=== PATIENT | female | born 1985 | race African-American/Black ===

== ENCOUNTER 2016-08-22 12:31 | Inpatient (IN) | payer OTHER ==
[~2016-08-22] VITALS: Ht 162.6 cm; Wt 85.3 kg
[~2016-08-22 12:31] MED LIST: PREN1CAP17
--- NOTE | 2016-08-22 13:00 | HHI.HP ---
History & Physical H&P Chief Complaint Non-reactive NST Travel History International Travel<30 Days: No Contact w/Intl Traveler<30Days: No Known Affected Area: No History of Present Illness HPI 31 y/o , presenting at 40/0 weeks gestation for a non-reactive stress test (NST) at the out patient office. She has been feeling well besides a persistent dry cough. The cough has been present for the past 3 months. Approximately 1 month ago she was treated with azithromycin x 5 days. She still endorses ++ FM, and denies vaginal bleeding, discharge. She has been having contractions off and on for the past several days. She is GBS negative. Two of her previous pregnancies were complicated by gestational diabetes, and preeclampsia. He BP has been slightly elevated in the office to 142 systolic. Total protein in 24 hour urine was 235.2 mg on . Allergic to ASA and has not been taking. She does have iron deficiency anemia with baseline hg of 9.5. History (Limited) History Past Medical History Narrative Medical Bronchopneumonia in 2016 Anemia Obstetric History Obstetric History Previous vaginal delivery x 3 36, 36, and 38 weeks. Past Surgical History Surgical History: No Previous Surgery Family History Family History: Negative Social History Alcohol Use: No Tobacco Use: No Substance Abuse: No Allergies-Medications Allergies-Medications (Allergen,Severity, Reaction): Coded Allergies: Aspirin (Verified Allergy, Severe, Anaphylaxis, 08/22/16) Home Meds Reported Medications W/O A W/ Fe Asparto G (Prenate Pixie 10-0.6-0.4-200 mg)1 Cap Cap 06/26/16 Discontinued Scripts Promethazine (Phenergan)25 Mg Tab25 Mg PO Q6H PRN (Nausea/Vomiting) #30 TAB Ref 0 Prov:Stefano Cali II, MD 08/12/16 ROS Review of Systems As per HPI. Physical Exam Physical Exam Narrative GENERAL: Well-nourished, well-developed patient. SKIN: Warm and dry. HEAD: Normocephalic and atraumatic. EYES: No scleral icterus. No injection or drainage. ENT: No nasal drainage noted. Mucous membranes pink. Airway patent. NECK: Supple, trachea midline. No JVD. CARDIOVASCULAR: Regular rate and rhythm without murmurs, gallops, or rubs. RESPIRATORY: Breath sounds equal bilaterally. No accessory muscle use. BREASTS: Bilateral exam showed no masses , no retractions, no nipple discharge. ABDOMEN/GI: Abdomen soft, non-tender, bowel sounds present, no rebound, no guarding Gravid to 40 weeks GENITOURINARY: External Genitalia: intact and normal in appearance Cervix: posterior Dilatation: 2 cm Effacement: 20 % Station: -2 Presentation: Vertex Membranes: Intact Uterine Contractions: q 6 minutes FHT's: Category: 1 Baseline: 145 Reactive: y Variability: mod Decels: none EXTREMITIES: No cyanosis or edema. BACK: Nontender without obvious deformity. NEUROLOGICAL: Awake and alert. Motor and sensory grossly within normal limits. Data Data Data Vital Signs Reviewed: Yes MDM MDM Medical Record Reviewed: Yes Plan 31 y/o presenting at 40/0 weeks gestation for non-reactive NST as an outpatient. IUP: Will induce labor for Non-reactive NST Cervix 2 cm, 20%, -2 station Cat 1 tracing Start pitocin 1-1-30 AROM once having consistent contractions GBS negative Elevated BP 142 as outpatient, normal 24 hour urine, continue to monitor. Anemia (Fe deficiency) - baseline Hgb 9.5. dw Sae Reza MD R2 Aug 22, 2016 13:00
[2016-08-22] MEDS ORDERED: LACTATED RINGER'S 1000 ML INJ 1,000 ML IV PRN (13:19)
[2016-08-22] MEDS ORDERED: CITRIC ACID-SODIUM CITRATE LIQ 30 ML UDC PO SCH (13:30)
[2016-08-22] MEDS ORDERED: OXYTOCIN 30 UNITS-500ML PREMIX 500 ML IV SCH (13:30)
[2016-08-22] MEDS ORDERED: MINERAL OIL 10 ML VIAL TOPICAL PRN (13:30)
[2016-08-22] MEDS ORDERED: LIDOCAINE HCL 1% 50 ML VIAL INFIL PRN (13:30)
[2016-08-22] MEDS ORDERED: SODIUM CHLORID 0.9% 500 ML INJ 500 ML IV PRN (13:30)
[2016-08-22] MEDS ORDERED: OXYTOCIN 30 UNITS-500ML PREMIX 500 ML IV ONE (13:30)
[2016-08-22] MEDS ORDERED: LIDOCAINE HCL 1% 50 ML VIAL I-DERMAL PRN (13:30)
[2016-08-22] MEDS ORDERED: SODIUM CHLOR 0.9% 1000 ML INJ 1,000 ML IV PRN (14:00)
[2016-08-22 14:19] LABS: BLOOD, URINE NEG (NEG); GLUCOSE,URINE NEG (NEG); KETONE, URINE 80 mg/dL (NEG); MUCUS URINE FEW /lpf (OCC); NITRITE,URINE NEG (NEG); SQUAMOUS EPITHELIAL CELL URINE 2 /hpf (0-5); URINE COLOR YELLOW (YELLW/STRAW)
[2016-08-22 14:20] LABS: BASOPHIL % 0.3 % (0.0-2.0); COMMENT (UR) CULT NOT INDICATED; CULTURE IF INDICATED CULT NOT INDICATED; EOSINOPHIL % 0.5 % (0.0-4.0); HEMATOCRIT 30.5 % (35.0-46.0); LYMPH % 25.6 % (9.0-44.0); LYMPHOCYTE # 1.5 TH/MM3 (1.0-4.8); MEAN CORPUSCULAR HEMOGLOBIN 24.1 PG (27.0-34.0); MEAN CORPUSCULAR HGB CONC 31.6 % (32.0-36.0); MONO % 7.1 % (0.0-8.0); NEUT % 66.5 % (16.0-70.0); PLATELET COUNT 298 TH/MM3 (150-450); RED BLOOD COUNT 4.01 MIL/MM3 (4.00-5.30); RED CELL DISTRIBUTION WIDTH 15.5 % (11.6-17.2)
[2016-08-22 14:22] LABS: HEMO FLAGS AUTO DIFF
--- NOTE | 2016-08-22 14:24 | PD ---
History of Present Illness Date Seen: Aug 22, 2016 History of Present Illness Pt sent over from [facility] for induction due to NR NST , seen with FM residents and agree with plan to deliver Stefano Cali II, MD Aug 22, 2016 14:24
[2016-08-22 14:50] LABS: OVALOCYTES 1+ (NORMAL); PLATELET ESTIMATE SMEAR NORMAL (NORMAL); PLATELET MORPHOLOGY NORMAL (NORMAL); SCAN/DIFF AUTO DIFF CONFIRMED
[2016-08-22] MEDS: LACTATED RINGER'S 1000 ML INJ 1,000 ML IV SCH ×2 (15:45→21:19)
[2016-08-22] MEDS ORDERED: fentaNYL 2MCG-BUPIV 0.125% INJ 100 ML ONE (19:40)
--- NOTE | 2016-08-22 19:59 | PD.LABORPN ---
Subjective Subjective Patient seen and examined by OB team. No acute events with vital signs stable. Oxytocin currently at 4 mU/m with category 1 tracing. Patient currently requesting epidural, otherwise no complaints. Objective Objective Pelvic Exam: Cervix: Posterior Dilatation: 4 cm Effacement: 2% Station: -3 Presentation: Vertex Membranes: AROM Uterine Contractions: Every 3-4m FHT's: Category: 1 Baseline: 145 Reactive: Positive Variability: Moderate Decels: None Assessment/Plan Assessment and Plan Ms. Macias is a 31 y/o , presenting at 40/0 weeks gestation currently in labor 1. IUP at 40/0 in labor -Continue routine labor care -VSS -Oxytocin at 4 mU/min, category 1 tracing, reassuring -Patient requesting epidural, orders placed DW: Isidro Alvarez MD R1 Aug 22, 2016 19:59
[2016-08-22] MEDS ORDERED: OXYTOCIN 10 UNIT/ML AMP ONE (23:28)
[2016-08-22] MEDS ORDERED: ACETAMINOPHEN 1000 MG/100 ML VIAL IV ONE (23:29)
[2016-08-22] MEDS ORDERED: ceFAZolin INJ 1,000 MG VIAL ONE (23:29)
[2016-08-22] MEDS ORDERED: DO NOT ADMINISTER ANTICOAGULANTS XX PRN (23:30)
[2016-08-22] MEDS ORDERED: ePHEDrine/NS 50 MG/5 ML SYR IV PRN (23:30)
[2016-08-22] MEDS ORDERED: fentaNYL 2MCG-BUPIV 0.125% INJ 100 ML EPIDURAL SCH (23:30)
[2016-08-22] MEDS ORDERED: NO SYSTEM NARCOTICS XX PRN (23:30)
[2016-08-22 23:54] LABS: BLOOD GAS BASE EXCESS -5.9 mmol/L (-2-2); BLOOD GAS O2 HGB SATURATION 21 % (90-100); CORD BLOOD GAS HCO3 20 mmol/L (21-29); CORD BLOOD GAS PCO2 42 mmHG (34-78); CORD BLOOD GAS PH 7.29 (7.14-7.42); CORD BLOOD GAS PO2 16 mmHG (3.0-40.0); DRAW SITE CORD BLOOD; STAT YES
[2016-08-23] MEDS ORDERED: ONDANSETRON HCL 4 MG/2 ML VIAL ONE (00:26)
[2016-08-23] MEDS ORDERED: MORPHINE SULFATE PF 5 MG/10 ML VIAL ONE (00:26)
[2016-08-23] MEDS ORDERED: ZOLPIDEM TARTRATE 5 MG TAB PO PRN (00:30)
[2016-08-23] MEDS ORDERED: SIMETHICONE 80 MG CHEWABLE TAB PO PRN (00:30)
[2016-08-23] MEDS ORDERED: OXYTOCIN 30 UNITS-500ML PREMIX 500 ML IV ONE (00:30)
[2016-08-23] MEDS ORDERED: ACETAMINOPHEN 325 MG TAB PO PRN (00:30)
[2016-08-23] MEDS ORDERED: ONDANSETRON HCL 4 MG/2 ML VIAL IV PUSH PRN (00:30)
[2016-08-23] MEDS ORDERED: KETOROLAC TROMETHAMINE 60 MG/2 ML (IM) VIAL IM PRN (00:30)
[2016-08-23] MEDS ORDERED: SODIUM CHLORIDE 0.9% FLUSH 5 ML FLUSH IV PRN (00:30)
[2016-08-23] MEDS ORDERED: IBUPROFEN 600 MG TAB PO PRN (00:30)
--- NOTE | 2016-08-23 00:42 | RADRPT ---
EXAM DATE/TIME: 08/23/2016 00:14 [facility] COMPARISON: No previous studies available for comparison. INDICATIONS : Instrument count, unknown foreign body MEDICAL HISTORY : None. Post SURGICAL HISTORY : None. ENCOUNTER: Initial ACUITY: 1 day PAIN SCORE: Non-responsive. LOCATION: Bilateral abdomen FINDINGS: Examination of the abdomen demonstrates a normal bowel gas pattern. No free air is identified. No o rganomegaly is evident. Osseous structures are intact. A thin linear radiopaque density overlies the midline of the upper abdomen. I cannot exclude a lap sponge. No radiopaque metallic foreign bodies. CONCLUSION: Linear density overlying the midabdomen. I cannot exclude a lap sponge. Parvez Garcia Jr., MD on August 23, 2016 at 0:40 Board Certified Radiologist. This report was verified electronically.
[2016-08-23] MEDS: LACTATED RINGER'S 1000 ML INJ 1,000 ML IV SCH ×2 (01:27→01:28)
--- NOTE | 2016-08-23 02:08 | RADRPT ---
EXAM DATE/TIME: 08/23/2016 01:52 [facility] COMPARISON: No previous studies available for comparison. INDICATIONS : Evaluate for foriegn body. S/P . ORAL CONTRAST: No oral contrast ingested. RADIATION DOSE: 10.11 CTDIvol (mGy) MEDICAL HISTORY : None SURGICAL HISTORY : section. ENCOUNTER: Initial ACUITY: 1 day PAIN SCALE: 5/10 LOCATION: abdomen TECHNIQUE: Volumetric scanning of the abdomen and pelvis was performed. Using automated exposure control and ad justment of the mA and/or kV according to patient size, radiation dose was kept as low as reasonably achievable to obtain optimal diagnostic quality images. FINDINGS: No radiopaque foreign body observed to suggest a retained instrument or lap sponge. Subcutaneous air overlies anterior abdominal wall consistent with the recent surgery. The uterus is enlarged consisten t with recent section. Small amount of free fluid is seen within the pelvis. A small amount of air is seen within the endometrial canal. Mild bilateral hydronephrosis. The remaining visceral st ructures are unremarkable on this unenhanced study. Note is made of a tear involving the central virgie l of the lumbar spine. This presumably relates to prior epidural injection. CONCLUSION: 1. No foreign body. 2. Air within the central canal of the lumbar spine presumably from recent epidural injection. 3. Recent section with postsurgical changes as detailed above. 4. Mild hydronephrosis bilaterally. 5. Small volume free fluid within the pelvis. Parvez Garcia Jr., MD on August 23, 2016 at 2:04 Board Certified Radiologist. This report was verified electronically.
[2016-08-23] MEDS ORDERED: EPIDURAL-DIPHENHYDRAMINE HCL 50 MG/ML VIAL IV PUSH PRN (02:45)
[2016-08-23] MEDS ORDERED: EPIDURAL-DO NOT ADMINISTER ANTICOAGULANTS XX PRN (02:45)
[2016-08-23] MEDS ORDERED: EPIDURAL-DIPHENHYDRAMINE HCL 50 MG CAP PO PRN (02:45)
[2016-08-23] MEDS ORDERED: EPIDURAL-NO SYSTEMIC NARCOTICS XX PRN (02:45)
[2016-08-23] MEDS ORDERED: EPIDURAL-NALOXONE HCL 0.4 MG/ML AMP IV PRN (02:45)
--- NOTE | 2016-08-23 05:18 | MP ---
cc: FAB CALI MD DATE OF SURGERY 08/23/2016 PREOPERATIVE DIAGNOSIS Non-reassuring heart rate tracing in the second stage. PREOPERATIVE DIAGNOSIS Non-reassuring heart rate tracing in the second stage. PROCEDURE PERFORMED Primary low transverse section. SURGEON Fab Cali MD [employer] Surgical techs. ANESTHESIA Epidural. PREOP NOTE The patient is a 31-year-old black female, G5, P3, at 40 weeks who was induced for nonreactive NST. She obtained cervical dilation of 10 cm and pushed but the baby was having very large variable decelerations and the variability had gone to minimal to absent. The head was at 0 station and was not moving fast enough for it to tolerate the type of heart rate tracing we were seeing and I felt that section was needed in this case. PROCEDURE The patient was taken to the operating room and placed in the supine position on the operating room table. Adequate epidural anesthesia was administered. She was prepped and draped for abdominal surgery. A Pfannenstiel incision was made in the lower abdomen, carried to the fascia, sharply the fascia was dissected off the rectus muscle and the rectus split in the midline. The peritoneal cavity was entered sharply. A bladder blade placed in the lower edge of the incision. The visceral peritoneum was reflected off the lower uterine segment and placed under bladder blade. A transverse hysterotomy was made and extended bluntly bilaterally and a female infant was delivered, weight 8 pounds, 8 ounces, Apgars of 8 and 9. There were no complications at delivery. Cord blood obtained. The cord pH was 7.29 and cord blood obtained. The placenta was manually extracted. The hysterotomy was closed with a running layer of 0 chromic followed by imbricating suture of same. Hemostasis was achieved. The bladder was reapproximated with 2-0 Vicryl running Vicryl. The uterus was elevated. She had a tubal performed at that time. She had tubal papers signed. The left tube was elevated with a Sulema clamp, a hemostat passed through the mesosalpinx and two sutures of 2-0 Vicryl pulled through the mesosalpinx and then the tube was tied fore and aft and the intervening segment of the tube was cut and removed and sent off to pathology. The same was done on the opposite side without difficulty with removal of the right tubal segment as well. They were both sent off. The uterus was elevated and blood suctioned from the cul-de-sac and gutters and the uterus was replaced in the peritoneal cavity. The parietal peritoneum was then closed in a running layer of 2-0 Vicryl. The rectus muscle was reapproximated with stick ties. The fascia was closed in a running layer of 0 Vicryl and then the skin closed with a 3-0 Monocryl subcuticular stitch. Pressure dressing was applied. Estimated blood loss was 500 cc. There were no complications. There was no count as this was an emergent surgery, so she had an abdominal x-ray shot. It was free and clear of any sponge and needle. The patient was taken to Recovery in stable condition. MD CARLO Moreno/DEVENDRA /12:27 AM /5:04 AM
--- NOTE | 2016-08-23 08:52 | HHI.OB ---
Subjective Post Operative Day: 1 Remarks 31 y/o POD #1 after emergent for non-reassuring hr. Patient just had mckenzie removed. Has not voided yet. Pain is a 4/10 localized to lower abdomen. Tolerating diet. Ambulating without difficulty. Still with vaginal bleeding but getting less and does not report any clots. No pain in her chest or sob. Objective Vitals/I&O Vital Signs Date Time Temp Pulse Resp B/P Pulse Ox O2 Delivery O2 Flow Rate FiO2 08/22/16 19:40 18 Result Diagram: 08/22/16 1327 Objective Remarks GENERAL: Well-nourished, well-developed patient. CARDIOVASCULAR: Regular rate and rhythm without murmurs, gallops, or rubs. RESPIRATORY: Breath sounds equal bilaterally. No accessory muscle use. ABDOMEN/GI: Abdomen soft, non-tender, bowel sounds present. Incision: Clean, dry and intact. Fundus: Firm, non-tender at umbilicus. GENITOURINARY: Light to moderate bleeding. EXTREMITIES: No cyanosis or edema, non-tender, without signs of DVT. Medications and IVs Current Medications Medications (Trade) Dose Ordered Sig/Susan Route Start Time Stop Time Status Last Admin (Lr 1000 ml Inj) 1,000 ml @ 100 mls/hr Q10H IV 08/23/16 05:21 08/24/16 01:20 08/23/16 01:28 (NS Flush) 2 ml BID IV 08/23/16 09:00 (NS Flush) 2 ml UNSCH PRN IV 08/23/16 00:30 (Mylicon Chew) 80 mg QID PRN PO 08/23/16 00:30 (Tylenol) 650 mg Q6H PRN PO 08/23/16 00:30 Oxycodone/ Acetaminophen 1 tab 1 tab Q4H PRN PO 08/23/16 00:30 (Ancef Inj/NS Inj) 100 ml @ 200 mls/hr Q8H IV 08/23/16 08:00 08/23/16 16:29 (Ambien) 5 mg HS PRN PO 08/23/16 00:30 (M-M-R Ii Inj) 0.5 ml ONCE ONCE SQ 08/24/16 16:00 08/24/16 16:01 (Boostrix Inj) 0.5 ml ONCE ONCE IM 08/24/16 16:00 08/24/16 16:01 (Zofran Inj) 4 mg Q6H PRN IV PUSH 08/23/16 00:30 (Ofirmev Inj) 1,000 mg Q8H IV 08/23/16 00:00 08/23/16 16:01 Miscellaneous Information NO SYSTEMIC NARCOTICS TO BE GIVEN FO... UNSCH PRN XX 08/23/16 02:45 08/24/16 02:44 (Narcan Inj) 0.4 mg UNSCH PRN IV 08/23/16 02:45 08/24/16 02:44 (Benadryl Inj) 25 mg Q6H PRN IV PUSH 08/23/16 02:45 08/24/16 02:44 08/23/16 02:54 (Benadryl) 50 mg Q6H PRN PO 08/23/16 02:45 08/24/16 02:44 Miscellaneous Information ALL NURSING DEPARTMENTS UNSCH PRN XX 08/23/16 02:45 08/24/16 02:44 Assessment/Plan Problem List: (1) delivery delivered Assessment and Plan 31 y/o POD#0-1, s/p C/S for distress. POD# 1 AFVSS Continue routine post care. Motrin and Percocet for pain Encourage breast feeding, requesting insolvency consultant Contraception: still considering options Dispo: Likely d/c home in 2-3 days. F/u with Mia Matos in 1 week post operatively. bola Cali. Sae Florian MD R2 Aug 23, 2016 08:52
[2016-08-23] MEDS: SODIUM CHLORIDE 0.9% FLUSH 5 ML FLUSH IV SCH ×2 (09:18→21:00)
--- NOTE | 2016-08-23 09:45 | HHI.OB ---
Subjective Post Operative Day: 1 Remarks Doing well , no c/o . 9 hrs postop exam- 3 + distention + bowel sounds , incision looks good Plan progressive post op care Objective Vitals/I&O Vital Signs Date Time Temp Pulse Resp B/P Pulse Ox O2 Delivery O2 Flow Rate FiO2 08/22/16 19:40 18 Result Diagram: 08/22/16 5891 Objective Remarks GENERAL: Well-nourished, well-developed patient. CARDIOVASCULAR: Regular rate and rhythm without murmurs, gallops, or rubs. RESPIRATORY: Breath sounds equal bilaterally. No accessory muscle use. ABDOMEN/GI: Abdomen soft, non-tender, bowel sounds present. Incision: Clean, dry and intact. Fundus: Firm, non-tender at umbilicus. GENITOURINARY: Light to moderate bleeding. EXTREMITIES: No cyanosis or edema, non-tender, without signs of DVT. Medications and IVs Current Medications Medications (Trade) Dose Ordered Sig/Susan Route Start Time Stop Time Status Last Admin (Lr 1000 ml Inj) 1,000 ml @ 100 mls/hr Q10H IV 08/23/16 05:21 08/24/16 01:20 08/23/16 01:28 (NS Flush) 2 ml BID IV 08/23/16 09:00 08/23/16 09:18 (NS Flush) 2 ml UNSCH PRN IV 08/23/16 00:30 (Mylicon Chew) 80 mg QID PRN PO 08/23/16 00:30 (Tylenol) 650 mg Q6H PRN PO 08/23/16 00:30 Oxycodone/ Acetaminophen 1 tab 1 tab Q4H PRN PO 08/23/16 00:30 (Ancef Inj/NS Inj) 100 ml @ 200 mls/hr Q8H IV 08/23/16 08:00 08/23/16 16:29 08/23/16 09:19 (Ambien) 5 mg HS PRN PO 08/23/16 00:30 (M-M-R Ii Inj) 0.5 ml ONCE ONCE SQ 08/24/16 16:00 08/24/16 16:01 (Boostrix Inj) 0.5 ml ONCE ONCE IM 08/24/16 16:00 08/24/16 16:01 (Zofran Inj) 4 mg Q6H PRN IV PUSH 08/23/16 00:30 (Ofirmev Inj) 1,000 mg Q8H IV 08/23/16 00:00 08/23/16 16:01 Miscellaneous Information NO SYSTEMIC NARCOTICS TO BE GIVEN FO... UNSCH PRN XX 08/23/16 02:45 08/24/16 02:44 (Narcan Inj) 0.4 mg UNSCH PRN IV 08/23/16 02:45 08/24/16 02:44 (Benadryl Inj) 25 mg Q6H PRN IV PUSH 08/23/16 02:45 08/24/16 02:44 08/23/16 02:54 (Benadryl) 50 mg Q6H PRN PO 08/23/16 02:45 08/24/16 02:44 Miscellaneous Information ALL NURSING DEPARTMENTS UNSCH PRN XX 08/23/16 02:45 08/24/16 02:44 Assessment/Plan Problem List: (1) delivery delivered Assessment and Plan 31 y/o POD#0-1, s/p C/S for distress. POD# 1 AFVSS Continue routine post care. Motrin and Percocet for pain Encourage breast feeding, requesting human capital consultant Contraception: still considering options Dispo: Likely d/c home in 2-3 days. F/u with Mia Matos in 1 week post operatively. bola Cali. Stefano Cali II, MD Aug 23, 2016 09:45
[2016-08-23] MEDS ORDERED: OXYTOCIN 30 UNITS-500ML PREMIX 500 ML IV PRN (10:30)
[2016-08-23] MEDS: ACETAMINOPHEN 1000 MG/100 ML VIAL IV SCH ×3 (14:20→16:00)
[2016-08-23] MEDS: IBUPROFEN 600 MG TAB PO PRN ×2 (14:21→22:41)
[2016-08-23] MEDS ORDERED: ACETAMINOPHEN 1000 MG/100 ML VIAL IV ONE (22:20)
[2016-08-23] MEDS: oxyCODONE/ACETAMINOPHEN 5 MG/325 MG TAB PO PRN (22:41)
[2016-08-24] VITALS (9 sets, daily range): BP systolic 102–127; BP diastolic 61–85; PULSE 79–90; RESP 16–18; TEMP 97.7–99; O2SAT 98
[2016-08-24] MEDS: IBUPROFEN 600 MG TAB PO PRN ×3 (06:15→18:18)
[2016-08-24 07:05] LABS: AUTOMATED NEUTROPHIL # 8.1 TH/MM3 (1.8-7.7); BASOPHIL % 0.2 % (0.0-2.0); EOSINOPHIL # 0.1 TH/MM3 (0-0.4); EOSINOPHIL % 1.1 % (0.0-4.0); LYMPH % 17.5 % (9.0-44.0); MEAN CELL VOLUME 76.7 FL (80.0-100.0); MEAN CORPUSCULAR HEMOGLOBIN 24.3 PG (27.0-34.0); MEAN CORPUSCULAR HGB CONC 31.8 % (32.0-36.0); MONO % 11.3 % (0.0-8.0); NEUT % 69.9 % (16.0-70.0); PLATELET COUNT 197 TH/MM3 (150-450); RED BLOOD COUNT 2.64 MIL/MM3 (4.00-5.30); RED CELL DISTRIBUTION WIDTH 15.9 % (11.6-17.2); WHITE BLOOD COUNT 11.6 TH/MM3 (4.0-11.0)
[2016-08-24 07:16] LABS: HEMATOCRIT 20.3 % (35.0-46.0); HEMO FLAGS AUTO DIFF
[2016-08-24 08:18] LABS: SCAN/DIFF AUTO DIFF CONFIRMED
[2016-08-24 08:19] LABS: OVALOCYTES 1+ (NORMAL)
--- NOTE | 2016-08-24 09:14 | HHI.OB ---
Subjective Post Operative Day: 2 Remarks Patient has been having increasing lower abdominal pain. The pain radiates to her back. It's about a 5 out of 10. She took one Percocet overnight, and this helps, however she does not want to be "sleepy." She is eating normally, denies palpitations, or feeling lightheaded. Her vaginal bleeding is spice blender than her period, and she denies any clots. Post operative day #2 hemoglobin returned at 6.4, preoperative hemoglobin was 9.7. She is currently asymptomatic. Objective Vitals/I&O Vital Signs Date Time Temp Pulse Resp B/P Pulse Ox O2 Delivery O2 Flow Rate FiO2 08/23/16 14:40 16 Result Diagram: 08/24/16 0525 Objective Remarks GENERAL: Well-nourished, well-developed patient. CARDIOVASCULAR: Regular rate and rhythm without murmurs, gallops, or rubs. RESPIRATORY: Breath sounds equal bilaterally. No accessory muscle use. ABDOMEN/GI: Abdomen soft, non-tender, bowel sounds present. Incision: Clean, dry and intact. Fundus: Firm, non-tender at umbilicus. GENITOURINARY: Light to moderate bleeding. EXTREMITIES: No cyanosis or edema, non-tender, without signs of DVT. Medications and IVs Current Medications Medications (Trade) Dose Ordered Sig/Susan Route Start Time Stop Time Status Last Admin (NS Flush) 2 ml BID IV 08/23/16 09:00 08/23/16 09:18 (NS Flush) 2 ml UNSCH PRN IV 08/23/16 00:30 (Mylicon Chew) 80 mg QID PRN PO 08/23/16 00:30 (Tylenol) 650 mg Q6H PRN PO 08/23/16 00:30 08/24/16 06:14 (Percocet 5-325 Mg) 1 tab Q4H PRN PO 08/23/16 00:30 08/23/16 22:41 (Ambien) 5 mg HS PRN PO 08/23/16 00:30 (M-M-R Ii Inj) 0.5 ml ONCE ONCE SQ 08/24/16 16:00 08/24/16 16:01 (Boostrix Inj) 0.5 ml ONCE ONCE IM 08/24/16 16:00 08/24/16 16:01 (Zofran Inj) 4 mg Q6H PRN IV PUSH 08/23/16 00:30 (Motrin) 600 mg Q6H PRN PO 08/23/16 13:00 08/24/16 06:15 Assessment/Plan Problem List: (1) delivery delivered Assessment and Plan 31 y/o POD#2, s/p C/S for distress. POD# 2 AFVSS Post operative anemia to 6.4 g/dL, recheck CBC in 24 hours, unless the patient becomes symptomatic. She is not tachycardic, or having any symptoms of anemia. Continue routine post care. Motrin and Percocet for pain Encourage breast feeding, requesting labor relations consultant Contraception: still considering options Dispo: Likely d/c home in 1-2 days. F/u with Mia Matos in 1 week post operatively. Sae Burgos Dr., MD R2 Aug 24, 2016 09:14
[2016-08-24] MEDS ORDERED: SODIUM CHLOR 0.9% 250 ML INJ 250 ML IV ONE (10:15)
[2016-08-24] MEDS: DOCUSATE SODIUM 50 MG/SENNA 8.6 MG TAB PO PRN (12:08)
[2016-08-24] MEDS: oxyCODONE/ACETAMINOPHEN 5 MG/325 MG TAB PO PRN ×3 (12:10→20:39)
[2016-08-24] MEDS ORDERED: DIPHTH/TETANUS/ACEL PERTUSSIS (BOOSTER) 0.5 ML VIAL/PFS IM ONE (16:00)
[2016-08-24] MEDS ORDERED: MEASLES, MUMPS, RUBELLA VACCINE 0.5 ML VIAL SQ ONE (16:00)
[2016-08-24 19:56] LABS: HEMATOCRIT 27.4 % (35.0-46.0); REVIEW FLAG FINAL
[2016-08-25] MEDS: oxyCODONE/ACETAMINOPHEN 5 MG/325 MG TAB PO PRN ×3 (00:34→09:40)
[2016-08-25] MEDS: IBUPROFEN 600 MG TAB PO PRN ×3 (00:34→13:11)
[2016-08-25 04:20] LABS: BASOPHIL % 0.2 % (0.0-2.0); EOSINOPHIL # 0.2 TH/MM3 (0-0.4); EOSINOPHIL % 1.4 % (0.0-4.0); HEMATOCRIT 26.3 % (35.0-46.0); HEMO FLAGS DIFF FINAL; LYMPH % 14.9 % (9.0-44.0); LYMPHOCYTE # 1.8 TH/MM3 (1.0-4.8); MEAN CELL VOLUME 79.1 FL (80.0-100.0); MEAN CORPUSCULAR HEMOGLOBIN 26.7 PG (27.0-34.0); MEAN CORPUSCULAR HGB CONC 33.7 % (32.0-36.0); MONO % 10.1 % (0.0-8.0); NEUT % 73.4 % (16.0-70.0); PLATELET COUNT 215 TH/MM3 (150-450); RED BLOOD COUNT 3.33 MIL/MM3 (4.00-5.30); RED CELL DISTRIBUTION WIDTH 16.1 % (11.6-17.2); WHITE BLOOD COUNT 12.2 TH/MM3 (4.0-11.0)
[2016-08-25] MEDS: DOCUSATE SODIUM 50 MG/SENNA 8.6 MG TAB PO PRN ×2 (05:52→13:11)
--- NOTE | 2016-08-25 08:56 | HHI.OB ---
Subjective Post Operative Day: 3 Remarks Doing well , zahra diet , bleeding decreased , ambulating exam- +BS , incision clean & dry Plan to D/C today Objective Vitals/I&O Vital Signs Date Time Temp Pulse Resp B/P Pulse Ox O2 Delivery O2 Flow Rate FiO2 08/24/16 19:35 99.0 98 08/24/16 19:35 79 18 119/76 08/24/16 18:15 98.4 85 16 127/85 08/24/16 16:16 98.3 88 16 102/61 08/24/16 16:06 98.2 90 16 114/76 08/24/16 16:00 98.0 86 16 116/69 08/24/16 14:15 98.0 83 16 109/68 08/24/16 13:46 97.7 88 16 103/62 08/24/16 13:45 98.0 90 16 109/71 08/24/16 13:33 98.6 85 18 111/66 Result Diagram: 08/25/16 0349 Objective Remarks GENERAL: Well-nourished, well-developed patient. CARDIOVASCULAR: Regular rate and rhythm without murmurs, gallops, or rubs. RESPIRATORY: Breath sounds equal bilaterally. No accessory muscle use. ABDOMEN/GI: Abdomen soft, non-tender, bowel sounds present. Incision: Clean, dry and intact. Fundus: Firm, non-tender at umbilicus. GENITOURINARY: Light to moderate bleeding. EXTREMITIES: No cyanosis or edema, non-tender, without signs of DVT. Medications and IVs Current Medications Medications (Trade) Dose Ordered Sig/Susan Route Start Time Stop Time Status Last Admin (NS Flush) 2 ml BID IV 08/23/16 09:00 08/23/16 09:18 (NS Flush) 2 ml UNSCH PRN IV 08/23/16 00:30 (Mylicon Chew) 80 mg QID PRN PO 08/23/16 00:30 (Tylenol) 650 mg Q6H PRN PO 08/23/16 00:30 08/24/16 06:14 (Percocet 5-325 Mg) 1 tab Q4H PRN PO 08/23/16 00:30 08/25/16 05:39 (Ambien) 5 mg HS PRN PO 08/23/16 00:30 (Zofran Inj) 4 mg Q6H PRN IV PUSH 08/23/16 00:30 (Motrin) 600 mg Q6H PRN PO 08/23/16 13:00 08/25/16 07:52 (Xiao-Colace) 2 tab Q12H PRN PO 08/24/16 10:45 08/25/16 05:52 Assessment/Plan Problem List: (1) delivery delivered Assessment and Plan 31 y/o POD#2, s/p C/S for distress. POD# 2 AFVSS Post operative anemia to 6.4 g/dL, recheck CBC in 24 hours, unless the patient becomes symptomatic. She is not tachycardic, or having any symptoms of anemia. Continue routine post care. Motrin and Percocet for pain Encourage breast feeding, requesting procurement consultant Contraception: still considering options Dispo: Likely d/c home in 1-2 days. F/u with Mia Matos in 1 week post operatively. bola Coelho-Stefano Aviles II, MD Aug 25, 2016 08:55
[2016-08-25 09:00] VITALS: TEMP 99
[2016-08-25] MEDS ORDERED: IBUP-232 PO (09:39)
[2016-08-25] MEDS ORDERED: FERR325T PO (09:39)
[2016-08-25] MEDS ORDERED: BREAST PUMP1 MI1 (09:39)
[2016-08-25] MEDS ORDERED: OXYC1TAB63 PO (09:39)
--- NOTE | 2016-08-25 09:42 | HHI.DCPOC ---
Discharge Care Plan Diagnosis: (1) delivery delivered Report Symptoms to Your Doctor -Temperate above 100.5 degrees -Redness, of incision or excessive or foul smelling drainage -Unusual pain or calf pain -Increased vaginal bleeding -Painful or difficulty urinating -Feelings of extreme sadness or anxiety after 2 weeks Goals to Promote Your Health * To prevent worsening of your condition and complications * To maintain your health at the optimal level Directions to Meet Your Goals Take your medications as prescribed Follow your dietary instruction Follow activity as directed Ensure plenty of rest for recovery Drink fluids for hydration Keep your appointments as scheduled Take your immunizations and boosters as scheduled If your symptoms worsen call your PCP, if no PCP go to Urgent Care Center or Emergency Room Smoking is Dangerous to Your Health. Avoid second hand smoke Call the 24-hour crisis hotline for domestic abuse at Sae Florian MD R2 Aug 25, 2016 09:42
[2016-08-25] MEDS ORDERED: SENN1TAB PO (09:43)
--- NOTE | 2016-08-25 11:45 | HHI.OB ---
Subjective Post Operative Day: 3 Remarks Patient had a drop in her hemoglobin to 6.4, however after receiving 2 units of packed red blood cells this corrected to 9.1. She has been stable since her emergency for nonreassuring heart rate. Today she tells me she is asymptomatic, she is ambulating, urinating, passing gas. She denies any worsening abdominal pain or worsening vaginal bleeding. Objective Vitals/I&O Vital Signs Date Time Temp Pulse Resp B/P Pulse Ox O2 Delivery O2 Flow Rate FiO2 08/25/16 09:00 99.0 08/24/16 19:35 99.0 98 08/24/16 19:35 79 18 119/76 08/24/16 18:15 98.4 85 16 127/85 08/24/16 16:16 98.3 88 16 102/61 08/24/16 16:06 98.2 90 16 114/76 08/24/16 16:00 98.0 86 16 116/69 08/24/16 14:15 98.0 83 16 109/68 08/24/16 13:46 97.7 88 16 103/62 08/24/16 13:45 98.0 90 16 109/71 08/24/16 13:33 98.6 85 18 111/66 Result Diagram: 08/25/16 0349 Objective Remarks GENERAL: Well-nourished, well-developed patient. CARDIOVASCULAR: Regular rate and rhythm without murmurs, gallops, or rubs. RESPIRATORY: Breath sounds equal bilaterally. No accessory muscle use. ABDOMEN/GI: Abdomen soft, non-tender, bowel sounds present. Incision: Clean, dry and intact. Fundus: Firm, non-tender at umbilicus. GENITOURINARY: Light to moderate bleeding. EXTREMITIES: No cyanosis or edema, non-tender, without signs of DVT. Medications and IVs Current Medications Medications (Trade) Dose Ordered Sig/Susan Route Start Time Stop Time Status Last Admin (NS Flush) 2 ml BID IV 08/23/16 09:00 08/23/16 09:18 (NS Flush) 2 ml UNSCH PRN IV 08/23/16 00:30 (Mylicon Chew) 80 mg QID PRN PO 08/23/16 00:30 (Tylenol) 650 mg Q6H PRN PO 08/23/16 00:30 08/24/16 06:14 (Percocet 5-325 Mg) 1 tab Q4H PRN PO 08/23/16 00:30 08/25/16 09:40 (Ambien) 5 mg HS PRN PO 08/23/16 00:30 (Zofran Inj) 4 mg Q6H PRN IV PUSH 08/23/16 00:30 (Motrin) 600 mg Q6H PRN PO 08/23/16 13:00 08/25/16 07:52 (Xiao-Colace) 2 tab Q12H PRN PO 08/24/16 10:45 08/25/16 05:52 Assessment/Plan Problem List: (1) delivery delivered (2) anemia Assessment and Plan 31 y/o POD#3, s/p C/S for distress. POD# 2 AFVSS Post operative anemia to 6.4 g/dL, given 2 units packed red blood cells, corrected to 9.1 g/dL. Patient is asymptomatic. Continue routine post care. Motrin and Percocet for pain Encourage breast feeding, requesting employment consultant Contraception: still considering options Dispo: Likely d/c home today. F/u with Mia Matos in 1 week post operatively. We'll discharge her home on iron therapy 325 mg twice a day. Sae Burgos Dr., MD R2 Aug 25, 2016 11:45
[2016-08-26] MEDS ORDERED: MEDR4PAK PO (15:17)
[2016-08-26] MEDS ORDERED: VENTAER INH (15:17)
[2016-08-26] MEDS ORDERED: AMOX875T PO (15:17)
[2016-08-26] MEDS ORDERED: DOXY100C PO (15:17)
[2016-09-05] MEDS ORDERED: IBUP-232 PO (10:34)
== END 2016-08-25 13:23 | disposition home or self-care (01) | DRG 766 ==
LOC: HOBED 12:31 → H2EB 13:20 → H1EA 08-23 02:02
PROVIDERS: ADMIT Obstetrics & Gynecology Maternal & Fetal Medicine; ATTEND Obstetrics & Gynecology Maternal & Fetal Medicine
PROC: 10D00Z1 Extraction of Products of Conception, Low, Open Approach (ICD-10-PCS; principal; 2016-08-23)
DX: O76 Abnormality in fetal heart rate and rhythm complicating labor and delivery (principal); D50.9 Iron deficiency anemia, unspecified; O99.02 Anemia complicating childbirth; Z37.0 Single live birth; Z3A.40 40 weeks gestation of pregnancy; Z86.32 Personal history of gestational diabetes
CPT/HCPCS: 36430; 74000; 74176; 81001; 82805; 85014; 85018; 85025; 86850; 86900; 86901; 86920; 88302; 99285; J0131; J0690; J1200; J2274; J2405; J2590; J7120; P9016

== ENCOUNTER 2016-08-26 11:56 | Emergency (ER) | payer OTHER ==
[~2016-08-26] VITALS: Ht 162.6 cm; Wt 82.0 kg
[~2016-08-26 11:56] MED LIST changes: +BREAST PUMP1 MI1; +FERR325T PO; +IBUP-232 PO; +OXYC1TAB63 PO; +SENN1TAB PO
[2016-08-26 11:57] VITALS: BP 139/84; PULSE 90; RESP 16; TEMP 98; O2SAT 96
[2016-08-26] MEDS ORDERED: SODIUM CHLORIDE 0.9% FLUSH 5 ML FLUSH IVF PRN (12:45)
--- NOTE | 2016-08-26 12:50 | PD ---
HPI Chief Complaint: Chest Pain Time Seen by Provider: 12:39 Travel History International Travel<30 days: No Contact w/Intl Traveler<30days: No Traveled to known affect area: No History of Present Illness HPI Patient is a 31-year-old female who presents to the emergency Department for evaluation of chest pain. Patient also reports shortness of breath, chest tightness, wheezing, and a fever of 100.1 last night. Patient states the chest pain started yesterday but became worse last night and was accompanied by wheezing. She states that it hurts to take a deep breath. Patient had an emergent on August 23, 2016 after decelerations were noted on the heart monitor. Patient is still having vaginal bleeding but states she only goes through 3 pads per day. She does report burning with urination, and lower abdominal pain around the incision site for her section. PFSH Past Medical History Anemia: Yes Cardiovascular Problems: Yes (preeclampsia) Chest Pain: Yes Diabetes: Yes (gestational diabetes) Diminished Hearing: No Endocrine: No Genitourinary: No Hypertension: Yes Immune Disorder: No Musculoskeletal: No Neurologic: No Psychiatric: No Reproductive: No Respiratory: No Immunizations Current: Yes Pneumonia: Yes Tetanus Vaccination: > 5 Years Influenza Vaccination: No ?: Not : 5 Para: 4 Miscarriage: 0 : 1 Tubal Ligation: Yes Past Surgical History Section: Yes (X1) Other Surgery: No Social History Alcohol Use: No Tobacco Use: No Substance Use: No Allergies-Medications (Allergen,Severity, Reaction): Coded Allergies: Aspirin (Verified Allergy, Severe, Anaphylaxis, 08/26/16) Reported Meds & Prescriptions Reported Meds & Active Scripts Active Ventolin Hfa 18 GM Inh (Albuterol Sulfate) 90 Mcg/Act Aer 2 Puff INH Q4-6H PRN Medrol Dosepak (Methylprednisolone) 4 Mg Dspk 4 Mg PO DIRECTED Per Pharmacist direction Doxycycline Hyclate 100 Mg Cap 100 Mg PO BID 7 Days Amoxicillin 875 Mg Tab 875 Mg PO BID 7 Days Senna Plus 8.6-50 mg (Sennosides-Docusate Sodium) 1 Tab Tab 2 Tab PO Q12H PRN Breast Pump (Device) 1 Mis Mis 1 Ea .ROUTE DIRECTED Ferrous Sulfate 325 Mg Tab 325 Mg PO DAILY Oxycodone-Acetaminophen 5-325 mg Tab 1 Tab PO Q4H PRN Ibuprofen 600 Mg Tab 600 Mg PO Q6H PRN Review of Systems Except as stated in HPI: all other systems reviewed are Neg General / Constitutional: Positive: Fever, Chills HENT: No: Headaches Cardiovascular: Positive: Chest Pain or Discomfort Respiratory: Positive: Cough, Shortness of Breath, Wheezing, Pleuritic Pain Gastrointestinal: Positive: Abdominal Pain, No: Nausea, Vomiting Genitourinary: Positive: Dysuria Neurologic: No: Weakness, Focal Abnormalities Physical Exam Narrative GENERAL: Well-developed, well-nourished, alert female. Resting comfortably in no acute distress. Family at bedside. SKIN: Warm and dry. Suprapubic horizontal incision is well approximated without erythema or drainage. HEAD: Atraumatic. Normocephalic. EYES: Pupils equal and round. No scleral icterus. No injection or drainage. ENT: No nasal bleeding or discharge. Mucous membranes pink and moist. NECK: Trachea midline. No JVD. CARDIOVASCULAR: Regular rate and rhythm. No murmur appreciated. RESPIRATORY: No accessory muscle use. Clear to auscultation. Breath sounds equal bilaterally. GASTROINTESTINAL: Abdomen soft, moderately tender to palpation in bilateral lower quadrants, positive bowel sounds, positive guarding, no rebound. MUSCULOSKELETAL: No obvious deformities. No clubbing. No cyanosis. No edema. NEUROLOGICAL: Awake and alert. No obvious cranial nerve deficits. Motor grossly within normal limits. Normal speech. PSYCHIATRIC: Appropriate mood and affect; insight and judgment normal. Data Data Last Documented VS Vital Signs Date Time Temp Pulse Resp B/P Pulse Ox O2 Delivery O2 Flow Rate FiO2 08/26/16 14:58 68 18 150/83 99 Room Air 08/26/16 11:57 98.0 Orders Electrocardiogram (08/26/16 ) Basic Metabolic Panel (Bmp) (08/26/16 12:37) Ckmb (Isoenzyme) Profile (08/26/16 12:37) Complete Blood Count With Diff (08/26/16 12:37) D-Dimer (08/26/16 12:37) Magnesium (Mg) (08/26/16 12:37) Prothrombin Time / Inr (Pt) (08/26/16 12:37) Act Partial Throm Time (Ptt) (08/26/16 12:37) Troponin I (08/26/16 12:37) Chest, Single Ap (08/26/16 12:37) Ecg Monitoring (08/26/16 12:37) Bilateral Bp Monitoring (08/26/16 12:37) Iv Access Insert/Monitor (08/26/16 12:37) Oximetry (08/26/16 12:37) Oxygen Administration (08/26/16 12:37) Sodium Chloride 0.9% Flush (Ns Flush) (08/26/16 12:45) Urinalysis - C+S If Indicated (08/26/16 12:37) CKMB (08/26/16 12:55) CKMB% (08/26/16 12:55) Ct Pulmonary Angiogram (08/26/16 ) Iohexol 350 Inj (Omnipaque 350 Inj) (08/26/16 14:48) Labs Laboratory Tests Test 08/26/16 08/26/16 12:50 12:55 Urine Color LIGHT-YELLOW Urine Turbidity CLEAR Urine pH 7.0 Urine Specific [place] 1.006 Urine Protein NEG mg/dL Urine Glucose (UA) NEG mg/dL Urine Ketones NEG mg/dL Urine Occult Blood SMALL Urine Nitrite NEG Urine Bilirubin NEG Urine Urobilinogen LESS THAN 2.0 MG/DL Urine Leukocyte Esterase NEG Urine RBC 1 /hpf Urine WBC LESS THAN 1 /hpf Urine Squamous Epithelial 3 /hpf Cells Urine Bacteria RARE /hpf Microscopic Urinalysis Comment CULT NOT INDICATED White Blood Count 9.3 TH/MM3 Red Blood Count 3.48 MIL/MM3 Hemoglobin 9.0 GM/DL Hematocrit 27.5 % Mean Corpuscular Volume 79.1 FL Mean Corpuscular Hemoglobin 25.9 PG Mean Corpuscular Hemoglobin 32.7 % Concent Red Cell Distribution Width 16.8 % Platelet Count 266 TH/MM3 Mean Platelet Volume 7.4 FL Neutrophils (%) (Auto) 75.1 % Lymphocytes (%) (Auto) 14.9 % Monocytes (%) (Auto) 8.1 % Eosinophils (%) (Auto) 1.7 % Basophils (%) (Auto) 0.2 % Neutrophils # (Auto) 7.0 TH/MM3 Lymphocytes # (Auto) 1.4 TH/MM3 Monocytes # (Auto) 0.8 TH/MM3 Eosinophils # (Auto) 0.2 TH/MM3 Basophils # (Auto) 0.0 TH/MM3 CBC Comment DIFF FINAL Differential Comment Prothrombin Time 9.5 SEC Prothromb Time International 0.9 RATIO Ratio Activated Partial 29.3 SEC Thromboplast Time D-Dimer Quantitative (PE/DVT) 2.35 MG/L FEU Sodium Level 142 MEQ/L Potassium Level 3.9 MEQ/L Chloride Level 109 MEQ/L Carbon Dioxide Level 27.7 MEQ/L Anion Gap 5 MEQ/L Blood Urea Nitrogen 7 MG/DL Creatinine 0.59 MG/DL Estimat Glomerular Filtration 146 ML/MIN Rate Random Glucose 72 MG/DL Calcium Level 8.5 MG/DL Magnesium Level 1.8 MG/DL Total Creatine Kinase 417 U/L Creatine Kinase MB 1.1 NG/ML Creatine Kinase MB % 0.3 % Troponin I LESS THAN 0.02 NG/ML MDM Medical Decision Making Medical Screen Exam Complete: Yes Emergency Medical Condition: Yes Medical Record Reviewed: Yes Interpretation(s) Vital Signs Date Time Temp Pulse Resp B/P Pulse Ox O2 Delivery O2 Flow Rate FiO2 08/26/16 11:57 98.0 90 16 139/84 96 Room Air Differential Diagnosis Pulmonary embolism versus pleurisy versus atelectasis versus urinary tract infection versus pneumonia versus other Narrative Course Patient is a 31-year-old female who presented for evaluation of chest pain. Pain started yesterday, became worse last night and was accompanied by wheezing and painful respirations. Patient has on 23 August emergently. After the patient had a hemoglobin of 6.4 and was transfused 2 units, she does have a history of iron deficiency anemia and is currently compliant with iron therapy. Patient reports a low-grade fever of 100.1, she is moderately tender to palpation in her lower quadrants around the incision site however the incision site is well approximated with no erythema or drainage noted. Differentials to include already embolism, atelectasis, endometritis, urinary tract infection, pleurisy, pneumonia. Patient similar presenting symptoms in August of last year and was diagnosed with bilateral pneumonia. Labs and Imaging ordered and pending. Her vital signs are stable at this time. D-dimer is elevated at 2.35 CBC shows a stable hemoglobin of 9 Chemistries unremarkable Urinalysis unremarkable Chest x-ray shows increasing bibasilar parenchymal changes, heart is minimally enlarged. CT pulmonary angiogram ordered. CT pulmonary angiogram is negative for pulmonary embolism. She will be treated on an outpatient basis for pneumonia. Patient is not breast-feeding. Discussed findings with patient and her mother who is at bedside. Patient was encouraged follow-up with her primary doctor or return to emergency department for any new or worsening symptoms. She verbalized understanding of instructions. Patient is stable for discharge. Diagnosis Primary Impression: Pneumonia Qualified Code: J18.9 - Pneumonia due to infectious organism, unspecified laterality, unspecified part of lung Referrals: Manager Payer Primary Care Physician Patient Instructions: General Instructions, Pneumonia (ED) Additional Instructions: Follow-up with your primary doctor Follow-up with her licensed mental health counselor as scheduled Complete full course of antibiotics as directed You may use the albuterol inhaler as needed and as directed for shortness of breath Return to emergency department immediately for any new or worsening symptoms Med/Other Pt SpecificInfo: Prescription(s) given Scripts Albuterol 18 GM Inh (Ventolin Hfa 18 GM Inh)90 Mcg/Act Aer2 Puff INH Q4-6H PRN ( SHORTNESS OF BREATH) #1 INHALER Ref 0 Prov:Jacki Albright 08/26/16 Methylprednisolone Dosepak (Medrol Dosepak)4 Mg Dspk4 Mg PO DIRECTED #1 DSPK Ref 0 Per Pharmacist direction Prov:Jacki Albright 08/26/16 Doxycycline Hyclate 100 Mg [id number] Mg PO BID 7 Days Ref 0 Prov:Jacki Albright 08/26/16 Amoxicillin 875 Mg [id number] Mg PO BID 7 Days Ref 0 Prov:Jacki Albright 08/26/16 Disposition: 01 DISCHARGE HOME Condition: Stable Jacki Albright Aug 26, 2016 12:50
[2016-08-26 13:04] VITALS: RESP 20; O2SAT 98
[2016-08-26 13:20] LABS: BASOPHIL % 0.2 % (0.0-2.0); EOSINOPHIL # 0.2 TH/MM3 (0-0.4); EOSINOPHIL % 1.7 % (0.0-4.0); HEMATOCRIT 27.5 % (35.0-46.0); HEMO FLAGS DIFF FINAL; LYMPH % 14.9 % (9.0-44.0); LYMPHOCYTE # 1.4 TH/MM3 (1.0-4.8); MEAN CELL VOLUME 79.1 FL (80.0-100.0); MEAN CORPUSCULAR HEMOGLOBIN 25.9 PG (27.0-34.0); MEAN CORPUSCULAR HGB CONC 32.7 % (32.0-36.0); MONO % 8.1 % (0.0-8.0); NEUT % 75.1 % (16.0-70.0); PLATELET COUNT 266 TH/MM3 (150-450); RED BLOOD COUNT 3.48 MIL/MM3 (4.00-5.30); RED CELL DISTRIBUTION WIDTH 16.8 % (11.6-17.2); WHITE BLOOD COUNT 9.3 TH/MM3 (4.0-11.0)
--- NOTE | 2016-08-26 13:27 | RADRPT ---
EXAM DATE/TIME: 08/26/2016 13:08 [facility] COMPARISON: CHEST SINGLE AP, September 04, 2015, 3:35. INDICATIONS : Chest pain and shortness of breath. MEDICAL HISTORY : Hx of bilateral pneumonia 1 year ago. SURGICAL HISTORY : None. ENCOUNTER: Initial ACUITY: 2 days PAIN SCORE: 8/10 LOCATION: chest FINDINGS: There are moderate bibasilar parenchymal changes evident. These have progressed from 09/04/2015. Hea rt is minimally enlarged. Pulmonary vascularity is normal. CONCLUSION: Increasing bibasilar parenchymal changes. Koffi Perez MD FACR on August 26, 2016 at 13:24 Board Certified Radiologist. This report was verified electronically.
[2016-08-26 13:30] LABS: APTT (PATIENT) 29.3 SEC (24.3-30.1); INTERNATIONAL NORMALIZED RATIO 0.9 RATIO; PROTHROMBIN TIME - PATIENT 9.5 SEC (9.8-11.6)
[2016-08-26 13:37] LABS: ANION GAP 5 MEQ/L (5-15); BICARBONATE 27.7 MEQ/L (21.0-32.0); BLOOD UREA NITROGEN 7 MG/DL (7-18); CHLORIDE 109 MEQ/L (98-107); GLOMERULAR FILTRATION RATE 146 ML/MIN (>89); MAGNESIUM 1.8 MG/DL (1.5-2.5); POTASSIUM 3.9 MEQ/L (3.5-5.1); SODIUM (NA) 142 MEQ/L (136-145)
[2016-08-26 13:40] LABS: BACTERIA, URINE RARE /hpf; BLOOD, URINE SMALL (NEG); COMMENT (UR) CULT NOT INDICATED; CULTURE IF INDICATED CULT NOT INDICATED; GLUCOSE,URINE NEG (NEG); KETONE, URINE NEG (NEG); NITRITE,URINE NEG (NEG); SQUAMOUS EPITHELIAL CELL URINE 3 /hpf (0-5); URINE COLOR LIGHT-YELLOW (YELLW/STRAW)
[2016-08-26 13:41] LABS: CREATINE KINASE 417 U/L (26-192)
[2016-08-26 13:53] LABS: CKMB 1.1 NG/ML (0.5-3.6)
--- NOTE | 2016-08-26 14:17 | PD ---
Data Data Last Documented VS Vital Signs Date Time Temp Pulse Resp B/P Pulse Ox O2 Delivery O2 Flow Rate FiO2 08/26/16 14:58 68 18 150/83 99 Room Air 08/26/16 11:57 98.0 Orders Electrocardiogram (08/26/16 ) Basic Metabolic Panel (Bmp) (08/26/16 12:37) Ckmb (Isoenzyme) Profile (08/26/16 12:37) Complete Blood Count With Diff (08/26/16 12:37) D-Dimer (08/26/16 12:37) Magnesium (Mg) (08/26/16 12:37) Prothrombin Time / Inr (Pt) (08/26/16 12:37) Act Partial Throm Time (Ptt) (08/26/16 12:37) Troponin I (08/26/16 12:37) Chest, Single Ap (08/26/16 12:37) Ecg Monitoring (08/26/16 12:37) Bilateral Bp Monitoring (08/26/16 12:37) Iv Access Insert/Monitor (08/26/16 12:37) Oximetry (08/26/16 12:37) Oxygen Administration (08/26/16 12:37) Sodium Chloride 0.9% Flush (Ns Flush) (08/26/16 12:45) Urinalysis - C+S If Indicated (08/26/16 12:37) CKMB (08/26/16 12:55) CKMB% (08/26/16 12:55) Ct Pulmonary Angiogram (08/26/16 ) Iohexol 350 Inj (Omnipaque 350 Inj) (08/26/16 14:48) Labs Laboratory Tests Test 08/26/16 08/26/16 12:50 12:55 Urine Color LIGHT-YELLOW Urine Turbidity CLEAR Urine pH 7.0 Urine Specific [place] 1.006 Urine Protein NEG mg/dL Urine Glucose (UA) NEG mg/dL Urine Ketones NEG mg/dL Urine Occult Blood SMALL Urine Nitrite NEG Urine Bilirubin NEG Urine Urobilinogen LESS THAN 2.0 MG/DL Urine Leukocyte Esterase NEG Urine RBC 1 /hpf Urine WBC LESS THAN 1 /hpf Urine Squamous Epithelial 3 /hpf Cells Urine Bacteria RARE /hpf Microscopic Urinalysis Comment CULT NOT INDICATED White Blood Count 9.3 TH/MM3 Red Blood Count 3.48 MIL/MM3 Hemoglobin 9.0 GM/DL Hematocrit 27.5 % Mean Corpuscular Volume 79.1 FL Mean Corpuscular Hemoglobin 25.9 PG Mean Corpuscular Hemoglobin 32.7 % Concent Red Cell Distribution Width 16.8 % Platelet Count 266 TH/MM3 Mean Platelet Volume 7.4 FL Neutrophils (%) (Auto) 75.1 % Lymphocytes (%) (Auto) 14.9 % Monocytes (%) (Auto) 8.1 % Eosinophils (%) (Auto) 1.7 % Basophils (%) (Auto) 0.2 % Neutrophils # (Auto) 7.0 TH/MM3 Lymphocytes # (Auto) 1.4 TH/MM3 Monocytes # (Auto) 0.8 TH/MM3 Eosinophils # (Auto) 0.2 TH/MM3 Basophils # (Auto) 0.0 TH/MM3 CBC Comment DIFF FINAL Differential Comment Prothrombin Time 9.5 SEC Prothromb Time International 0.9 RATIO Ratio Activated Partial 29.3 SEC Thromboplast Time D-Dimer Quantitative (PE/DVT) 2.35 MG/L FEU Sodium Level 142 MEQ/L Potassium Level 3.9 MEQ/L Chloride Level 109 MEQ/L Carbon Dioxide Level 27.7 MEQ/L Anion Gap 5 MEQ/L Blood Urea Nitrogen 7 MG/DL Creatinine 0.59 MG/DL Estimat Glomerular Filtration 146 ML/MIN Rate Random Glucose 72 MG/DL Calcium Level 8.5 MG/DL Magnesium Level 1.8 MG/DL Total Creatine Kinase 417 U/L Creatine Kinase MB 1.1 NG/ML Creatine Kinase MB % 0.3 % Troponin I LESS THAN 0.02 NG/ML MDM Supervised Visit with MARY: Yes Narrative Course I, Dr. Miller, have reviewed the advance practice practioner's documentation and am in agreement, met with the patient face to face, made the diagnosis, and the medical decision making was done by me. *My assessment and Findings: 31-year-old female 3 days status post for deceleration here with complaint of chest pain that is both pleuritic and squeezing throughout the chest. She feels somewhat short of breath and had a temperature of 100.1 last night. She is regularly taking Motrin for postoperative pain. She does have some pain around the lower abdomen at the C- section site, and slight burning with urination. Regular rate and rhythm, lungs are clear bilaterally. She has incisional tenderness to palpation but the remainder of her abdominal examination is benign. Differential includes pneumonia, PE, UTI, postoperative pain, pleurisy. Patient's EKG shows sinus rhythm without notable ST or T-wave abnormalities and normal intervals. Laboratory workup notable for elevated d-dimer. Chest x-ray shows increasing bibasilar parenchymal changes. Given her elevated d-dimer a CT pulmonary angiogram was obtained showing no evidence of PE, infectious versus inflammatory changes. Patient will be covered with antibiotics for pneumonia and discharged home. Alissa Miller MD Aug 26, 2016 14:17
[2016-08-26] MEDS ORDERED: IOHEXOL 350 MG/ML 10 ML VIAL (for RAD DIAG) IV ONE (14:48)
[2016-08-26 14:58] VITALS: BP 150/83; PULSE 68; RESP 18; O2SAT 99
--- NOTE | 2016-08-26 15:09 | RADRPT ---
EXAM DATE/TIME: 08/26/2016 14:33 [facility] COMPARISON: CT PULMONARY ANGIOGRAM, September 04, 2015, 5:07. CHEST SINGLE AP, August 26, 2016, 13:08. INDICATIONS : Chest pain, fever, 4 days post . IV CONTRAST: 64 cc Omnipaque 350 (iohexol) IV RADIATION DOSE: 22.94 CTDIvol (mGy) MEDICAL HISTORY : Hypertension. Diabetes mellitus type 1. SURGICAL HISTORY : ENCOUNTER: Initial ACUITY: 1 day PAIN SCALE: 5/10 LOCATION: chest TECHNIQUE: Volumetric scanning of the chest was performed using a pulmonary embolism protocol MIP images were re constructed. Using automated exposure control and adjustment of the mA and/or kV according to patien t size, radiation dose was kept as low as reasonably achievable to obtain optimal diagnostic quality images. FINDINGS: PULMONARY ARTERIES: No filling defects are seen in the pulmonary arteries through the segmental level. LUNGS: There are dispersed patchy areas of airspace disease bilaterally PLEURAE: Small bilateral pleural effusions layering posteriorly. MEDIASTINUM: There is good visualization of the great vessels of the middle mediastinum. No evidence of mediastin al or hilar adenopathy/mass. MUSCULOSKELETAL: Within normal limits for patient age. MISCELLANEOUS: The visualized upper abdominal organs demonstrate no acute abnormality. CONCLUSION: Negative for pulmonary embolization. Dispersed patchy areas bilaterally of airspace disea se with associated small bilateral pleural effusions most likely infectious inflammatory basis Jae Griffith MD on August 26, 2016 at 15:04 Board Certified Radiologist. This report was verified electronically.
[2016-08-26] MEDS ORDERED: MEDR4PAK PO (15:17)
[2016-08-26] MEDS ORDERED: AMOX875T PO (15:17)
[2016-08-26] MEDS ORDERED: VENTAER INH (15:17)
[2016-08-26] MEDS ORDERED: DOXY100C PO (15:17)
--- NOTE | 2016-08-27 17:16 | EKG ---
Date Performed: 08/26/2016 Time Performed: 12:13:55 PTAGE: 31 years EKG: Sinus rhythm NORMAL ECG PREVIOUS TRACING : 04/06/2016 19.18 Compared to the previous tracing, rate has decreased DOCTOR: Israel Birmingham Interpretating Date/Time 08/27/2016 17:16:28
[2016-09-05] MEDS ORDERED: IBUP-232 PO (10:34)
== END 2016-08-26 16:29 | disposition home or self-care (01) ==
LOC: NEPE 11:56
DX: O90.89 Other complications of the puerperium, not elsewhere classified (principal); J18.9 Pneumonia, unspecified organism; I10 Essential (primary) hypertension; Z86.2 Personal history of diseases of the blood and blood-forming organs and certain disorders involving the immune mechanism; Z86.32 Personal history of gestational diabetes; Z87.01 Personal history of pneumonia (recurrent); Z98.890 Other specified postprocedural states
CPT/HCPCS: 71010; 71275; 80048; 81001; 82550; 82552; 83735; 84484; 85025; 85379; 85610; 85730; 93005; 99285; Q9967

== ENCOUNTER 2016-10-02 19:17 | Emergency (ER) | payer OTHER ==
[~2016-10-02] VITALS: Ht 162.6 cm; Wt 77.0 kg
[~2016-10-02 19:17] MED LIST changes: -BREAST PUMP1 MI1; -PREN1CAP17
[2016-10-02 19:19] VITALS: BP 155/97; PULSE 104; RESP 16; TEMP 100.5; O2SAT 98
[2016-10-02] MEDS ORDERED: PREN29TA PO (19:29)
== END 2016-10-02 21:41 | disposition left against medical advice (07) ==
LOC: NED 19:17
DX: Z53.21 Procedure and treatment not carried out due to patient leaving prior to being seen by health care provider (principal)
CPT/HCPCS: 99281

== ENCOUNTER 2017-07-23 17:17 | Emergency (ER) | payer MEDICAID, OTHER ==
[~2017-07-23 17:17] MED LIST changes: +AMLO2.5T PO; +DEXT1CAP; +DICY10 PO; -FERR325T PO; +FERR325T18 PO; -IBUP-232 PO; -OXYC1TAB63 PO; +PREN29TA PO; -SENN1TAB PO; +ZITHTAB PO; +ZOFR4TAB3 SL
[2017-07-23 17:19] VITALS: BP 134/90; PULSE 85; TEMP 98.7; O2SAT 100
--- NOTE | 2017-07-23 18:08 | PD ---
HPI Chief Complaint: Head Injury Time Seen by Provider: 18:08 Travel History International Travel<30 days: No Contact w/Intl Traveler<30days: No Traveled to known affect area: No History of Present Illness HPI 32-year-old female with no significant medical history presents to emergency department for evaluation. Patient states [place], striking her head. She thought initially she may have struck only her ear but noticed this morning she has a bruise behind her ear. She did not lose consciousness. She has had no nausea vomiting no focal deficits or weakness. She would just like to make sure that she is okay. Pain is mild to moderate. Does not radiate anywhere. No ear drainage. No other symptoms. PFSH Past Medical History Anemia: Yes Cardiovascular Problems: Yes (HTN) Chest Pain: Yes Diabetes: Yes (gestational diabetes) Diminished Hearing: No Endocrine: No Genitourinary: No Hypertension: Yes Immune Disorder: No Musculoskeletal: No Neurologic: No Psychiatric: No Reproductive: No Respiratory: No Immunizations Current: Yes Pneumonia: Yes LMP: CURRENT : 5 Para: 4 Miscarriage: 0 : 1 Tubal Ligation: Yes Past Surgical History Section: Yes (X1) Other Surgery: No Social History Alcohol Use: Yes (OCC) Tobacco Use: No Substance Use: No Allergies-Medications (Allergen,Severity, Reaction): Coded Allergies: aspirin (Unverified Allergy, Severe, Anaphylaxis, 04/03/17) Reported Meds & Prescriptions Reported Meds & Active Scripts Active Bentyl (Dicyclomine HCl) 10 Mg Cap 10 Mg PO TID PRN Zofran Odt (Ondansetron Odt) 4 Mg Tab 4 Mg SL Q6HR PRN Zithromax Z-Roddy (Azithromycin) 250 Mg Dspk 250 Mg PO DIRECTED 500 MG (2 tabs) day 1, then 1 tab days 2-5. Reported Amlodipine (Amlodipine Besylate) 2.5 Mg Tab 2.5 Mg PO DAILY Ferrous Sulfate 325 Mg (65 Mg Iron) Tablet 325 Mg PO DAILY Night Time Cold & Flu Rel 15-6.25-325 mg (Dextromethorphan-Doxylamine- Acetaminophen) 1 Cap Cap Plus Iron 29-1 mg ( Vit-Iron Carbonyl) 1 Tab Tab 1 Tab PO DAILY Review of Systems Except as stated in HPI: all other systems reviewed are Neg Physical Exam Narrative GENERAL: Well-nourished, well-developed female patient, ambulatory and in no acute distress HEAD: Normocephalic. Contusion posterior to the right ear. No crepitus. No edema. EYES: No scleral icterus. No injection or drainage. NECK:trachea midline. CARDIOVASCULAR: Regular rate RESPIRATORY:No accessory muscle use. GASTROINTESTINAL: Abdomen nondistended. MUSCULOSKELETAL: No cyanosis, or edema. BACK:without obvious deformity. Data Data Last Documented VS Vital Signs Date Time Temp Pulse Resp B/P (MAP) Pulse Ox O2 Delivery O2 Flow Rate FiO2 07/23/17 17:19 98.7 85 134/90 (105) 100 MDM Medical Decision Making Medical Screen Exam Complete: Yes Emergency Medical Condition: Yes Medical Record Reviewed: Yes Differential Diagnosis Minor head injury versus contusion versus skull fracture Narrative Course 32-year-old female presents to the emergency room for evaluation after striking her head last night while at a triplane part. Patient appears without distress. She is ambulatory. She has no obvious focal deficits weakness. Once a bed becomes double, patient will be transferred and care assumed by that provider. AMA: The risks of leaving against medical advice without further evaluation treatment were discussed with the patient. These risks include cardiac dysfunction, cardiac dysrhythmia, possible heart attack, possible stroke or . The patient indicated understanding of these risks and appeared to have the capacity to make this decision. Diagnosis Primary Impression: Head injury Disposition: 07 AGAINST MEDICAL ADVICE Condition: Stable HuangSherly gillis DANO Jul 23, 2017 18:08
== END 2017-07-23 17:50 | disposition left against medical advice (07) ==
LOC: NEPK 17:17 → NETRI 17:50 → NEPK 17:50
DX: S09.90XA Unspecified injury of head, initial encounter (principal); S00.03XA Contusion of scalp, initial encounter; D64.9 Anemia, unspecified; I10 Essential (primary) hypertension; W22.8XXA Striking against or struck by other objects, initial encounter; Y93.44 Activity, trampolining; Z79.899 Other long term (current) drug therapy; Z88.6 Allergy status to analgesic agent
CPT/HCPCS: 99281

== ENCOUNTER 2017-07-31 22:53 | Emergency (ER) | payer MEDICAID ==
[~2017-07-31] VITALS: Ht 162.6 cm; Wt 77.0 kg
[2017-07-31 22:54] VITALS: BP 140/88; PULSE 87; RESP 16; TEMP 97.9; O2SAT 100
[2017-07-31] MEDS ORDERED: PENI500T PO (23:07)
--- NOTE | 2017-07-31 23:35 | RADRPT ---
EXAM DATE/TIME: 07/31/2017 23:28 [facility] COMPARISON: CHEST SINGLE AP, August 26, 2016, 13:08. INDICATIONS : Chest pressure. MEDICAL HISTORY : None. SURGICAL HISTORY : Tubal ligation. section. ENCOUNTER: Initial ACUITY: 3 days PAIN SCORE: 7/10 LOCATION: Bilateral chest FINDINGS: A single view of the chest demonstrates the lungs to be symmetrically aerated without evidence of mas s, infiltrate or effusion. The cardiomediastinal contours are unremarkable. Osseous structures are intact. CONCLUSION: Lungs are clear. Parvez Walsh MD on July 31, 2017 at 23:33 Board Certified Radiologist. This report was verified electronically.
[2017-07-31] MEDS ORDERED: GUAISYP4 PO (23:50)
[2017-07-31] MEDS ORDERED: VENTAER INH (23:50)
--- NOTE | 2017-07-31 23:50 | PD ---
HPI Chief Complaint: Pain: Acute or Chronic Time Seen by Provider: 23:36 Travel History International Travel<30 days: No Contact w/Intl Traveler<30days: No Traveled to known affect area: No History of Present Illness HPI PATIENT HAS HAD 2 DAYS OF COUGH, YELLOW SPUTUM, NOT IMPROVING. DENIES ANY ALLEVIATING/AGGRAVATING FACTORS. PATIENT DENIES ASSOC FACTORS OF FEVER/N/V/D/ ABDPAIN/BACKPAIN/HEMATURIA AT THIS TIME....WHEN SHE HAS COUGHING FITS SHE DEVELOPS SOME LIGHT HEADEDNESS BECAUSE OF A STRING OF COUGHING FITS THAT OCCURS AT A TIME. PCP:NONE PMHX:DENIES PSHX:DENIES ALL:ASA SMOKES OCCASIONALLY PFSH Past Medical History Anemia: Yes Cardiovascular Problems: Yes (HTN) Chest Pain: Yes Diabetes: Yes (gestational diabetes) Diminished Hearing: No Endocrine: Yes (gestational diabetes) Genitourinary: No Hypertension: Yes Immune Disorder: No Musculoskeletal: No Neurologic: No Psychiatric: No Reproductive: No Respiratory: No Immunizations Current: Yes Pneumonia: Yes ?: Not LMP: 07-26-17 : 5 Para: 4 Miscarriage: 0 : 1 Tubal Ligation: Yes Past Surgical History Section: Yes (X1) Other Surgery: No Social History Alcohol Use: Yes (OCC) Tobacco Use: No Substance Use: No Allergies-Medications (Allergen,Severity, Reaction): Coded Allergies: aspirin (Unverified Allergy, Severe, Anaphylaxis, 07/31/17) Reported Meds & Prescriptions Reported Meds & Active Scripts Active Reported Penicillin V Potassium 500 Mg Tab 500 Mg PO Q6H Ferrous Sulfate 325 Mg (65 Mg Iron) Tablet 325 Mg PO DAILY Review of Systems Except as stated in HPI: all other systems reviewed are Neg General / Constitutional: No: Fever Eyes: No: Visual changes HENT: No: Headaches Cardiovascular: No: Chest Pain or Discomfort Respiratory: Positive: Cough Gastrointestinal: No: Abdominal Pain Genitourinary: No: Dysuria Musculoskeletal: No: Pain Skin: No Rash Neurologic: No: Weakness Psychiatric: No: Depression Endocrine: No: Polydipsia Hematologic/Lymphatic: No: Easy Bruising Physical Exam Narrative GENERAL: SKIN: Warm and dry. HEAD: Atraumatic. Normocephalic. EYES: Pupils equal and round. No scleral icterus. No injection or drainage. ENT: No nasal bleeding or discharge. Mucous membranes pink and moist. NECK: Trachea midline. No JVD. CARDIOVASCULAR: Regular rate and rhythm. RESPIRATORY: No accessory muscle use. SCATTERED WHEEZES BUT WITH GOOD TV. Breath sounds equal bilaterally. GASTROINTESTINAL: Abdomen soft, non-tender, nondistended. MUSCULOSKELETAL: Extremities without clubbing, cyanosis, or edema. No obvious deformities. NEUROLOGICAL: Awake and alert. No obvious cranial nerve deficits. Motor grossly within normal limits. Five out of 5 muscle strength in the arms and legs. Normal speech. PSYCHIATRIC: Appropriate mood and affect; insight and judgment normal. Data Data Last Documented VS Vital Signs Date Time Temp Pulse Resp B/P (MAP) Pulse Ox O2 Delivery O2 Flow Rate FiO2 07/31/17 23:03 16 07/31/17 22:54 97.9 87 140/88 (105) 100 Room Air Orders Orders Chest, Single Ap (07/31/17 ) [facility] Medical Decision Making Medical Screen Exam Complete: Yes Emergency Medical Condition: Yes Medical Record Reviewed: Yes Differential Diagnosis PNA V BRONCHITIS V BRONCHOSPASM Narrative Course CHEST XRAY NEG FOR PNA/PTX, PULSE OX 96% ON RA WAS NORMAL WITH GOOD PLETH WAVE...WILL D/C HOME Diagnosis Primary Impression: Acute bronchitis Qualified Codes: J20.9 - Acute bronchitis, unspecified Patient Instructions: Acute Bronchitis (ED), General Instructions Scripts Albuterol 18 GM Inh (Ventolin Hfa 18 GM Inh) 90 Mcg/Act Aer 1 PUFF INH Q4H Y for SHORTNESS OF BREATH, #1 INHALER 0 Refills Prov: Deandre Novoa MD 07/31/17 Guaifenesin-Codeine Liq (Guaifenesin AC Liq) 100-10 Mg/5 Ml Syrp 10 ML PO Q6H Y for COUGH, #1 BOTTLE 0 Refills Prov: Deandre Novoa MD 07/31/17 Disposition: 01 DISCHARGE HOME Condition: Stable Deandre Novoa MD Jul 31, 2017 23:50
== END 2017-08-01 00:03 | disposition home or self-care (01) ==
LOC: NEPD 22:53
DX: J20.9 Acute bronchitis, unspecified (principal); D64.9 Anemia, unspecified; I10 Essential (primary) hypertension; Z79.899 Other long term (current) drug therapy; Z88.6 Allergy status to analgesic agent
CPT/HCPCS: 71010; 99284

== ENCOUNTER 2017-08-24 13:45 | Emergency (ER) | payer MEDICAID ==
[~2017-08-24] VITALS: Ht 162.6 cm; Wt 79.0 kg
[~2017-08-24 13:45] MED LIST changes: -AMLO2.5T PO; -DEXT1CAP; -DICY10 PO; +GUAISYP4 PO; +PENI500T PO; -PREN29TA PO; +VENTAER INH; -ZITHTAB PO; -ZOFR4TAB3 SL
[2017-08-24 13:46] VITALS: BP 161/92; PULSE 103; RESP 20; TEMP 100.1; O2SAT 100
[2017-08-24] MEDS ORDERED: IBUPROFEN 800 MG TAB PO ONE (14:00)
--- NOTE | 2017-08-24 14:09 | PD ---
HPI Chief Complaint: Cold / Flu Symptoms Time Seen by Provider: 13:57 Travel History International Travel<30 days: No Contact w/Intl Traveler<30days: No Traveled to known affect area: No History of Present Illness HPI Patient is a 32-year-old female presenting to the emergency department for evaluation of body aches, chills, headache, vomiting. Patient states her symptoms started today Pt took [id number] cough medicine today. She denies any chest pain, shortness of breath, abdominal pain. She reports subjective fevers as not taken her temperature. Cough medicine did not alleviate her symptoms so she presented to the emergency department for evaluation. She has no other complaints at this time. PFSH Past Medical History Anemia: Yes Chest Pain: Yes Diabetes: Yes (gestational diabetes) Diminished Hearing: No Genitourinary: No Hypertension: Yes Immune Disorder: No Musculoskeletal: No Neurologic: No Psychiatric: No Reproductive: No Respiratory: No Immunizations Current: Yes Pneumonia: Yes LMP: 08/18/17 : 5 Para: 4 Miscarriage: 0 : 1 Tubal Ligation: Yes Past Surgical History Section: Yes (X1) Other Surgery: No Social History Alcohol Use: Yes (OCC) Tobacco Use: No Substance Use: No Allergies-Medications (Allergen,Severity, Reaction): Coded Allergies: aspirin (Unverified Allergy, Severe, Anaphylaxis, 08/24/17) Reported Meds & Prescriptions Reported Meds & Active Scripts Active Zofran Odt (Ondansetron Odt) 4 Mg Tab 4 Mg SL Q8HR PRN Tamiflu (Oseltamivir Phosphate) 75 Mg Cap 75 Mg PO BID 5 Days Reported Ibuprofen 600 Mg Tab Unknown Dose PO QID Oxycodone-Acetaminophen 7.5-325 mg Tab Unknown Dose PO Q6H PRN Cough DM Liq (Dextromethorphan Polistirex Liq) 30 Mg/5 Ml Jocelin 10 Ml PO Q12H PRN Review of Systems Except as stated in HPI: all other systems reviewed are Neg General / Constitutional: Positive: Fever, Chills HENT: Positive: Headaches, Rhinitis, Congestion Cardiovascular: No: Chest Pain or Discomfort Respiratory: Positive: Cough, No: Shortness of Breath, Wheezing Gastrointestinal: Positive: Nausea, Vomiting (once) Musculoskeletal: Positive: Myalgias Physical Exam Narrative GENERAL: Well-developed, well-nourished, well-appearing female. In no acute distress. Appears acutely ill SKIN: Warm and dry. HEAD: Normocephalic. EYES: No scleral icterus. No injection or drainage. NECK: Supple, trachea midline. No JVD or lymphadenopathy. CARDIOVASCULAR: Mildly tachycardic RESPIRATORY: No increased work of breathing, no accessory muscle use, no nasal flaring. Data Data Last Documented VS Vital Signs Date Time Temp Pulse Resp B/P (MAP) Pulse Ox O2 Delivery O2 Flow Rate FiO2 08/24/17 13:46 100.1 103 20 161/92 (115) 100 Room Air Orders Orders Ibuprofen (Motrin) (08/24/17 14:00) MDM Medical Decision Making Medical Screen Exam Complete: Yes Emergency Medical Condition: Yes Interpretation(s) Vital Signs Date Time Temp Pulse Resp B/P (MAP) Pulse Ox O2 Delivery O2 Flow Rate FiO2 08/24/17 13:46 100.1 103 20 161/92 (115) 100 Room Air Differential Diagnosis Viral URI versus influenza versus bronchitis versus pneumonia versus other Narrative Course Patient is a 32-year-old female that presented to emergency department for evaluation of cold and flu symptoms that started this morning. Patient is in no acute distress, vital signs reviewed, she is running a low-grade temp, ibuprofen given in the emergency department in triage while waiting for bed placement. Shortly thereafter patient stated that she did not want to wait and was going to [facility]. She was advised that she may have just as long wait there and was encouraged to stay to be evaluated. Patient continued to decline further evaluation. Patient Gogo Macias has decided to leave the hospital against medical advice. This patient has the capacity to refuse care and understands the risks of leaving, including permanent disability and/or , and has had an opportunity to ask questions about her condition. The patient has been informed that she may return for care at any time, and follow up has been arranged/advised. Diagnosis Primary Impression: Left against medical advice Jacki Albright Aug 24, 2017 14:09
[2017-08-24] MEDS ORDERED: DEXT30LI5 PO (15:19)
[2017-08-24] MEDS ORDERED: IBUP-232 PO (15:19)
[2017-08-24] MEDS ORDERED: OXYC1TAB35 PO (15:19)
[2017-08-24] MEDS ORDERED: OSEL75 PO (15:46)
[2017-08-24] MEDS ORDERED: ZOFR4TAB3 SL (15:46)
== END 2017-08-24 14:10 | disposition left against medical advice (07) ==
LOC: NED 13:45
DX: R51 Headache (principal); R05 Cough
CPT/HCPCS: 99281

== ENCOUNTER 2017-08-24 15:04 | Emergency (ER) | payer MEDICAID ==
[~2017-08-24] VITALS: Ht 162.6 cm; Wt 72.9 kg
[2017-08-24 15:07] VITALS: BP 139/69; PULSE 96; RESP 16; TEMP 98.9; O2SAT 100
[2017-08-24] MEDS ORDERED: IBUP-232 PO (15:19)
[2017-08-24] MEDS ORDERED: DEXT30LI5 PO (15:19)
[2017-08-24] MEDS ORDERED: OXYC1TAB35 PO (15:19)
--- NOTE | 2017-08-24 15:29 | PD ---
HPI Chief Complaint: Cold / Flu Symptoms Time Seen by Provider: 15:21 Travel History International Travel<30 days: No Contact w/Intl Traveler<30days: No Traveled to known affect area: No History of Present Illness HPI 32 YO F presents to the ED for evaluation of a less than 24-hour history of chills, aches, headache, sinus congestion, nausea and vomiting. Symptoms onset when the patient woke up this morning. She denies ear pain, runny nose, cough, abdominal pain, dysuria, risk of . Denies sick contacts. She did not receive this years flu vaccine. She treated at home with some OTC cold medications and ibuprofen about an hour and half before arrival. PFSH Past Medical History Anemia: Yes Cardiovascular Problems: Yes (HTN) Chest Pain: Yes Diabetes: Yes (gestational diabetes) Patient Takes Glucophage: No Diminished Hearing: No Endocrine: Yes (gestational diabetes) Genitourinary: No Hypertension: Yes Immune Disorder: No Musculoskeletal: No Neurologic: No Psychiatric: No Reproductive: No Respiratory: No Immunizations Current: Yes Pneumonia: Yes Tetanus Vaccination: Unknown Influenza Vaccination: No ?: Not LMP: LAST WEEK : 5 Para: 4 Miscarriage: 0 : 1 Tubal Ligation: Yes Past Surgical History Section: Yes (X1) Gynecologic Surgery: Yes Other Surgery: No Social History Alcohol Use: Yes (OCC) Tobacco Use: No Substance Use: No Allergies-Medications (Allergen,Severity, Reaction): Coded Allergies: aspirin (Unverified Allergy, Severe, Anaphylaxis, 08/24/17) Reported Meds & Prescriptions Reported Meds & Active Scripts Active Zofran Odt (Ondansetron Odt) 4 Mg Tab 4 Mg SL Q8HR PRN Tamiflu (Oseltamivir Phosphate) 75 Mg Cap 75 Mg PO BID 5 Days Reported Ibuprofen 600 Mg Tab Unknown Dose PO QID Oxycodone-Acetaminophen 7.5-325 mg Tab Unknown Dose PO Q6H PRN Cough DM Liq (Dextromethorphan Polistirex Liq) 30 Mg/5 Ml Jocelin 10 Ml PO Q12H PRN Review of Systems Except as stated in HPI: all other systems reviewed are Neg Physical Exam Narrative GENERAL: Well-nourished, well-developed ill-appearing Martiniquais female in no acute distress. SKIN: Focused skin assessment warm/dry. HEAD: Normocephalic. EYES: No scleral icterus. No injection or drainage. ENT: Pearly cohen tympanic membranes bilaterally. Oropharynx without erythema, edema or exudate. NECK: Supple, trachea midline. No JVD or lymphadenopathy. CARDIOVASCULAR: Regular rate and rhythm without murmurs, gallops, or rubs. RESPIRATORY: Breath sounds clear and equal bilaterally. No accessory muscle use. GASTROINTESTINAL: Abdomen soft, non-tender, nondistended. MUSCULOSKELETAL: No cyanosis, or edema. BACK: Nontender without obvious deformity. No CVA tenderness. Data Data Last Documented VS Vital Signs Date Time Temp Pulse Resp B/P (MAP) Pulse Ox O2 Delivery O2 Flow Rate FiO2 08/24/17 15:07 98.9 96 16 139/69 (92) 100 Orders Orders Influenzae A/B Antigen (08/24/17 15:17) Ondansetron Odt (Zofran Odt) (08/24/17 15:45) Ed Discharge Order (08/24/17 15:46) MDM Medical Decision Making Medical Screen Exam Complete: Yes Emergency Medical Condition: Yes Differential Diagnosis Influenza versus viral syndrome versus less likely strep pharyngitis versus other Narrative Course 32 YO F presents to the ED for evaluation of a less than 24-hour history of chills, aches, headache, sinus congestion, nausea and vomiting. Symptoms onset when the patient woke up this morning. She denies ear pain, runny nose, cough, abdominal pain, dysuria, risk of . Denies sick contacts. She did not receive this years flu vaccine. Vitals reviewed. Patient afebrile on presentation. On physical exam she is ill-appearing but the ENT exam is unremarkable. Chest CTAB. Rapid flu swab negative. However given the unreliability of the test will treat with Tamiflu. Patient was educated of this medication does not treat the symptoms of flu, only shortness duration of the illness. She is instructed to continue with symptomatic treatment, Tylenol or Motrin 4-6 hours as needed for fever. She is provided with a short course of Zofran, first dose administered in the ED. We discussed reasons to return to the ED. Patient is understanding of instructions and is agreeable to a care plan. The patient is stable and discharged home. Diagnosis Primary Impression: Acute viral syndrome Referrals: Primary Care Physician Patient Instructions: General Instructions, Viral Syndrome (ED) Additional Instructions: Rest, hydrate. Take Tamiflu as prescribed. Take Zofran as prescribed, as needed for nausea. Continue with symptomatic treatment with OTC medications. Most importantly, continue alternating Tylenol and ibuprofen every 4-6 hours as needed for fever. Read the label to assure proper dosing. Follow-up with the primary care provider. Return to the ED for worsening symptoms or any urgent or emergent medical condition. Med/Other Pt SpecificInfo: Prescription(s) given Scripts Ondansetron Odt (Zofran Odt) 4 Mg Tab 4 MG SL Q8HR Y for Nausea/Vomiting, #6 TAB 0 Refills Prov: Pavan Morse MD 08/24/17 Oseltamivir (Tamiflu) 75 Mg Cap 75 MG PO BID for Mgmt Viral Infection for 5 Days, #10 CAP 0 Refills Prov: Pavan Morse MD 08/24/17 Disposition: 01 DISCHARGE HOME Condition: Stable Jennifer Miranda Aug 24, 2017 15:29
[2017-08-24] MEDS ORDERED: ONDANSETRON ODT 4 MG TAB PO ONE (15:45)
[2017-08-24] MEDS ORDERED: ZOFR4TAB3 SL (15:46)
[2017-08-24] MEDS ORDERED: OSEL75 PO (15:46)
== END 2017-08-24 16:12 | disposition home or self-care (01) ==
LOC: PHEFT 15:04
DX: B34.9 Viral infection, unspecified (principal); D64.9 Anemia, unspecified; I10 Essential (primary) hypertension; E11.9 Type 2 diabetes mellitus without complications; Z79.899 Other long term (current) drug therapy; Z88.6 Allergy status to analgesic agent
CPT/HCPCS: 87804; 99284